=== PATIENT | female | born 1980 | race African-American/Black ===

== ENCOUNTER 2016-10-27 14:10 | Emergency (ER) | payer OTHER ==
[~2016-10-27] VITALS: Ht 157.5 cm; Wt 90.4 kg
[2016-10-27 15:53] LABS: HEMATOCRIT 38.7 % (36.0-46.0); MCH 28.7 PG (29.0-34.0); MCHC 33.6 G/DL (30.0-36.0); MCV 85.4 FL (83-99); MEAN PLAT.VOLUME 9.4 uM^3 (9.5-12.4); PLATELET COUNT 274 K/uL (156-360); RBC DIS.WIDTH-CV 11.8 % (11.8-14.6); RBC DIS.WIDTH-SD 35.7 % (39-53); RED BLOOD COUNT 4.53 M/uL (3.80-5.20); WHITE BLOOD COUNT 5.9 K/uL (4.1-10.2)
[2016-10-27 16:01] LABS: CHLORIDE 109 mEq/L (99-109); POTASSIUM 4.2 mEq/L (3.7-5.4); SODIUM 138 mEq/L (136-147)
[2016-10-27 16:03] LABS: GLUCOSE 88 mg/dL (70-99)
[2016-10-27 16:04] LABS: ANION GAP 8 MEQ/L (2-14)
[2016-10-27 16:07] LABS: GFR ESTIMATE (CALCULATED) > 59 mL/min/
[2016-10-27 16:08] LABS: UREA NITROGEN (BUN) 12 mg/dL (9-23)
[2016-10-27 16:15] LABS: TROP-I INTERPRETATION NEGATIVE; TROPONIN-I < 0.01 ng/mL (0.0-0.30)
[2016-10-27] MEDS ORDERED: PRILOSEC20 MG PO (16:26)
[2016-10-27 16:48] VITALS: BP 108/65
== END 2016-10-27 17:04 | disposition home or self-care (01) ==
LOC: RME 14:10 → EME 14:10 → RME 17:04
DX: R10.13 Epigastric pain (principal); R07.89 Other chest pain
CPT/HCPCS: 71020; 80048; 84484; 85027; 93005; 99281; 99284

== ENCOUNTER 2018-03-12 21:50 | Emergency (ER) | payer OTHER ==
[~2018-03-12] VITALS: Ht 157.5 cm; Wt 88.2 kg
[~2018-03-12 21:50] MED LIST: PRILOSEC20 MG PO
[2018-03-12 22:25] LABS: HEMATOCRIT 35.6 % (36.0-46.0); HEMOGLOBIN 11.9 G/DL (11.9-15.5); MCHC 33.4 G/DL (30.0-36.0); MCV 86.6 FL (83-99); PLATELET COUNT 263 K/uL (156-360); RBC DIS.WIDTH-SD 38.2 % (39-53); RED BLOOD COUNT 4.11 M/uL (3.80-5.20); WHITE BLOOD COUNT 5.5 K/uL (4.1-10.2)
[2018-03-12 22:33] LABS: ALBUMIN 4.3 g/dL (3.2-4.8)
[2018-03-12 22:34] LABS: CHLORIDE 107 mEq/L (99-109); POTASSIUM 3.8 mEq/L (3.7-5.4); SODIUM 140 mEq/L (136-147)
[2018-03-12 22:36] LABS: GLUCOSE 112 mg/dL (70-99); TOTAL PROTEIN 7.5 g/dL (6.4-8.3)
[2018-03-12 22:38] LABS: TOTAL BILIRUBIN 0.2 mg/dL (0.0-1.0)
[2018-03-12 22:39] LABS: ALKALINE PHOSPHATASE 75 IU/L (3-129)
[2018-03-12 22:40] LABS: CREATININE 0.8 mg/dL (0.6-1.3); GFR ESTIMATE (CALCULATED) > 59 mL/min/
[2018-03-12 22:41] LABS: AST (GOT) 16 IU/L (2-34); UREA NITROGEN (BUN) 9 mg/dL (9-23)
[2018-03-12 22:42] LABS: ALT (GPT) 18 IU/L (3-49)
[2018-03-12 22:48] LABS: QUANTITATIVE HCG < 4.0 MIU/ML
[2018-03-12] MEDS ORDERED: ZOFRAN ODT4 MG PO (23:36)
[2018-03-12] MEDS ORDERED: TRAMADOL HCL50 MG PO (23:36)
[2018-03-13 00:01] VITALS: BP 128/64
== END 2018-03-13 00:03 | disposition home or self-care (01) ==
LOC: EME 21:50
PROVIDERS: Nurse Practitioner Family
DX: D25.1 Intramural leiomyoma of uterus (principal); R10.31 Right lower quadrant pain
CPT/HCPCS: 74177; 80053; 84702; 85027; 99281; 99284; J7030